=== PATIENT | female | born 1995 | race Caucasian/White ===

== ENCOUNTER 2016-07-22 20:58 | Emergency (ER) | payer MEDICAID ==
[2016-07-22] MEDS ORDERED: ONDANSETRON 4 MG VIAL ONE (22:12)
[2016-07-22] MEDS ORDERED: SODIUM CHLORIDE 0.9% 1,000 ML ONE (22:12)
== END 2016-07-23 00:46 | disposition home or self-care (01) ==
LOC: ER 20:58
DX: O23.41 Unspecified infection of urinary tract in pregnancy, first trimester (principal); Z3A.12 12 weeks gestation of pregnancy; O99.331 Smoking (tobacco) complicating pregnancy, first trimester
CPT/HCPCS: 36415; 80053; 81001; 81025; 83690; 85025; 87088; 87491; 87591; 87800; 96361; 96374